=== PATIENT | male | born 2000 | race Caucasian/White ===

== ENCOUNTER 2021-10-06 18:38 | Emergency (ER) | payer BC ==
--- NOTE | 2021-10-06 18:59 | ED Physician Documentation ---
History of Present Illness - Stated complaint Stated Complaint: SHAKY,NAUSEA,VOMITING - Chief complaint Chief Complaint: Abd Pain - History obtained from History obtained from: Patient - Additonal information Additional information: Previously healthy 21-year-old was returning from a hike about 3 or 4 hours ago when he developed a sudden mild frontal headache associated with vomiting and dizziness. He feels better now that he is laying still. Declines medications for pain or vomiting at this point. No history of similar prior illnesses. No sick contacts. Review of Systems Ten Systems: 10 systems reviewed and negative Constitutional: reports: Reviewed and negative Nose: reports: Reviewed and negative Throat: reports: Reviewed and negative Cardiac: reports: Reviewed and negative PD PAST MEDICAL HISTORY - Present Medications Home Medications: Ambulatory Orders Medication Instructions Recorded Confirmed Ondansetron Odt [Zofran] 4 mg TL Q6H PRN #10 tablet 10/06/21 - Allergies Allergies/Adverse Reactions: Allergies Allergy/AdvReac Type Severity Reaction Status Date / Time No Known Drug Allergies Allergy Verified 10/06/21 18:45 PD ED PE NORMAL - Vitals Vital signs reviewed: Yes - General General: Alert and oriented X 3, Other (He appears uncomfortable and is retching, the retching ceases after lying down.) - HEENT HEENT: PERRL, EOMI - Neck Neck: Supple, no meningeal sign, No bony TTP - Cardiac Cardiac: RRR, No murmur - Respiratory Respiratory: No respiratory distress, Clear bilaterally - Abdomen Abdomen: Normal bowel sounds, Soft, Non tender - Back Back: No CVA TTP, No spinal TTP - Derm Derm: Normal color - Extremities Extremities: No edema, No calf tenderness / cord - Neuro Neuro: Alert and oriented X 3, No motor deficit, No sensory deficit, Normal speech Eye Opening: Spontaneous Motor: Obeys Commands Verbal: Oriented GCS Score: 15 Results - Vitals Vitals: Vital Signs - 24 hr 10/06/21 10/06/21 10/06/21 18:42 19:06 21:00 Temperature 36.6 C 37.7 C Heart Rate 114 H 100 89 Respiratory 20 18 18 Rate Blood Pressure 105/76 113/79 124/75 O2 Saturation 100 100 100 10/06/21 10/06/21 22:10 23:36 Temperature 37.6 C Heart Rate 89 88 Respiratory 16 16 Rate Blood Pressure 121/71 122/73 O2 Saturation 99 98 Oxygen O2 Source Room air - Labs Labs: Laboratory Tests 10/06/21 10/06/21 10/06/21 18:58 18:58 19:05 WBC 14.7 H RBC 6.00 Hgb 17.0 Hct 50.6 MCV 84.3 MCH 28.3 MCHC 33.6 RDW 12.2 Plt Count 312 MPV 9.6 Neut # (Auto) 12.9 H Lymph # (Auto) 1.0 L [place] # (Auto) 0.7 Eos # (Auto) 0.1 Baso # (Auto) 0.1 Absolute Nucleated RBC 0.00 Nucleated RBC % 0.0 PT 13.4 H INR 1.2 Sodium 139 Potassium 3.9 Chloride 103 Carbon Dioxide 24 Anion Gap 12.0 BUN 17 Creatinine 1.2 Estimated GFR (MDRD) 76 L Glucose 117 H Calcium 10.0 Total Bilirubin 1.2 H AST 31 ALT 26 Alkaline Phosphatase 73 Total Protein 7.9 Albumin 5.4 Globulin 2.5 Albumin/Globulin Ratio 2.2 Lipase 41 PD MEDICAL DECISION MAKING - ED course ED course: 21-year-old gentleman presents with sudden onset headache dizziness and vomiting today. He declined pain medication at the interim. Given his complaints, leading differential diagnosis with subarachnoid hemorrhage and CT angiography of the head was done without acute findings. He also did not want nausea medicine in the interim but he continued to vomit and subsequently agreed to a dose of Reglan. After that he started having diarrhea making the diagnosis of gastroenteritis much more likely. At that point it was noted by the friend that a few other friends have had similar symptoms recently. He failed his first p.o. challenge and was given a dose of Zofran Departure - Departure Disposition: 01 Home, Self Care Clinical Impression: Gastroenteritis Vomiting Qualifiers: Vomiting type: unspecified Nausea presence: with nausea Qualified Code(s): R11.2 - Nausea with vomiting, unspecified Headache Qualifiers: Headache type: unspecified Headache chronicity pattern: acute headache Intractability: not intractable Qualified Code(s): R51.9 - Headache, unspecified Condition: Stable Instructions: ED Gastroenteritis Viral Prescriptions: Ondansetron Odt [Zofran] 4 mg TL Q6H PRN #10 tablet PRN Reason: Nausea / Vomiting Discharge Date/Time: 10/06/21 23:50
[2021-10-06 19:05] LABS: BASOPHILS # (AUTO) 0.1 10^3/uL (0.0-0.1); BASOPHILS % (AUTO) 0.3 %; EOSINOPHILS # (AUTO) 0.1 10^3/uL (0.0-0.7); EOSINOPHILS % (AUTO) 0.3 %; HCT - HEMATOCRIT 50.6 % (42.0-52.0); LYMPHOCYTES % (AUTO) 6.6 %; MEAN CORPUSCULAR HEMOGLOBIN 28.3 pg (27.0-31.0); MEAN CORPUSCULAR HGB CONC 33.6 g/dL (32.0-36.0); MEAN CORPUSCULAR VOLUME 84.3 fL (80.0-94.0); MEAN PLATELET VOLUME 9.6 fL (7.4-11.4); MONOCYTES # (AUTO) 0.7 10^3/uL (0.0-1.0); MONOCYTES % (AUTO) 4.5 %; NEUTROPHILS # (AUTO) 12.9 10^3/uL (1.5-6.6); PLT - PLATELET COUNT 312 10^3/uL (130-450); RED CELL DISTRIBUTION WIDTH 12.2 % (12.0-15.0); WHITE BLOOD COUNT 14.7 x10^3/uL (4.8-10.8)
[2021-10-06] MEDS ORDERED: IOVERSOL 320 50 ML VIAL ONE (19:10)
[2021-10-06 19:16] LABS: ALBUMIN 5.4 g/dL (3.2-5.5); ALBUMIN/GLOBULIN RATIO 2.2 (1.0-2.2); BILIRUBIN,TOTAL 1.2 mg/dL (0.2-1.0); CREATININE 1.2 mg/dL (0.6-1.2); POTASSIUM 3.9 mmol/L (3.5-5.0); TOTAL PROTEIN 7.9 g/dL (6.7-8.2)
[2021-10-06 19:20] LABS: INR 1.2 (0.8-1.2); PT - PROTHROMBIN TIME 13.4 secs (9.9-12.6)
[2021-10-06] MEDS: IOVERSOL 320 50 ML VIAL IVP ONE (19:46)
--- NOTE | 2021-10-06 20:04 | CT Report ---
PROCEDURE: ANGIO HEAD W/WO INDICATIONS: headache, vomiting CONTRAST: IV CONTRAST: Optiray 320 ml: 100 PO CONTRAST: *NO PO CONTRAST TECHNIQUE: Precontrast 4.5 mm thick angled axial sections acquired from the foramen magnum to the vertex. Afte r the administration of intravenous contrast, 1 mm thick sections acquired through the [place] of [place] is. Postcontrast 4.5 mm thick sections then re-acquired from the foramen magnum to the vertex. 3-di mensional zlrmyuj-kobvmsddi-kusqdwznzf (MIP) and/or volume rendering reformats were acquired of the c entral intracranial vasculature. For radiation dose reduction, the following was used: automated ex posure control, adjustment of mA and/or kV according to patient size. COMPARISON: None FINDINGS: Image quality: Excellent. Anterior circulation: Intracranial internal carotid arteries are normal in size and flow. The flow within the paired anterior cerebral arteries is normal and symmetric. The flow within the middle cer ebral arteries is normal and symmetric. The anterior communicating artery is seen. No aneurysms are seen. Posterior circulation: Visualized portions of the vertebral arteries demonstrate normal caliber, and join to form a normal appearing basilar artery. Flow within the posterior cerebral arteries is norm al and symmetric. No aneurysms are seen. CSF spaces: Ventricles are normal in size and shape. Basal cisterns are patent. No extra-axial flu id collections. Brain: No midline shift. No intracranial bleeds or masses. Ramirez-white matter interface appears int act. Skull and face: Calvarium and facial bones appear intact, without suspicious lesions. Sinuses: Visualized sinuses and mastoids are clear. IMPRESSION: 1. Normal CT of the head without contrast. 2. Normal CTA of the head. Reviewed by: Humberto Pizarro on 10/06/2021 8:03 PM PDT Approved by: Humberto Pizarro on 10/06/2021 8:03 PM PDT Station ID: [id number]
[2021-10-06] MEDS: METOCLOPRAMIDE 10 MG/2 ML VIAL IVP STA (20:21)
[2021-10-06] MEDS: LOPERAMIDE 2 MG CAPSULE PO STA (21:08)
[2021-10-06] MEDS: ONDANSETRON 4 MG/2 ML VIAL IVP STA (21:19)
--- NOTE | 2021-10-06 23:28 | ED Physician Documentation ---
ED Addendum - Addendum Addendum: The patient was signed out to me by Dr. Hancock, pending tolerance of p.o. challenge in the emergency department, after presenting with headache, vomiting, and diarrhea. The patient had been given both Zofran and Reglan and initially had failed p.o. challenge. He was observed for another hour in the emergency department, after which he was able to tolerate a p.o. challenge for 45 minutes at the time of this dictation. The patient reported feeling better and wished to go home. Final impression: Gastroenteritis Disposition: Home in stable and improved condition. 10/06/21 23:27
[2021-10-06 23:37] VITALS: BP 122/73
[2021-10-06] MEDS: ONDANSETRON ODT 4 MG Prepack 2 TL PRN (23:49)
== END 2021-10-06 23:50 | disposition home or self-care (01) ==
LOC: EDBD → ED 18:38
DX: K52.9 Noninfective gastroenteritis and colitis, unspecified (principal); R51.9 Headache, unspecified
CPT/HCPCS: 36415; 70496; 80053; 83690; 85025; 85610; 96374; 96375; 99282; 99284; A9270; J2765